=== PATIENT | female | born 1990 ===

== ENCOUNTER 2018-06-20 08:22 | Outpatient (CLI) | payer OTHER ==
[~2018-06-20] VITALS: Ht 170.2 cm; Wt 59.0 kg
== END 2018-06-20 08:40 | disposition home or self-care (01) ==
LOC: OFIC 805 08:22
DX: H93.90 Unspecified disorder of ear, unspecified ear (principal); R22.1 Localized swelling, mass and lump, neck

== ENCOUNTER 2018-06-24 13:12 | Outpatient (CLI) | payer OTHER ==
[~2018-06-24] VITALS: Ht 152.4 cm; Wt 59.0 kg
== END 2018-06-24 13:30 | disposition home or self-care (01) ==
LOC: OFIC 805 13:12
DX: R22.1 Localized swelling, mass and lump, neck (principal); H93.90 Unspecified disorder of ear, unspecified ear

== ENCOUNTER 2018-08-01 12:42 | Outpatient (CLI) | payer OTHER ==
[~2018-08-01] VITALS: Ht 152.4 cm; Wt 59.0 kg
== END 2018-08-01 13:00 | disposition home or self-care (01) ==
LOC: OFIC 805 12:42
DX: H93.90 Unspecified disorder of ear, unspecified ear (principal); R22.1 Localized swelling, mass and lump, neck